=== PATIENT | female | born 1960 | race Caucasian/White ===

== ENCOUNTER 2017-07-30 18:26 | Inpatient (IN) | payer OTHER ==
[~2017-07-30] VITALS: Ht 175.2 cm; Wt 65.8 kg
--- NOTE | ~2017-07-30 | CON ---
[place], [place] REPORT OF CONSULTATION NAME: YOANA YBARRA UNIT #: [id number] ROOM: 312 DOCTOR: ANA CRISTINA NASH ED.D (EZE) BIRTHDATE: [birth year] DOS: 08/01/2017 HISTORY OF PRESENT ILLNESS: The patient is a 57-year-old female referred by Dr. Waters for competency evaluation. At the present time, she is on the [facility] Unit at [facility]. She states she is single, but has a boyfriend, but she has not seen him for quite some time. She does not have any children. She has no family intervention. According to the staff at [facility] in [place], [place], which is where she has been residing. She states she formerly worked and at one time was on social security. She does not know her family physician, but her medical history is pertinent for cirrhosis of the liver with ascites, Mack's esophagus and bipolar 1 disorder and delirium. MEDICATIONS: Include Invega Sustenna, omeprazole, Synthroid, albuterol, vitamin D, multivitamins, potassium chloride, folic acid and lactulose. She states she was formerly a heavy drinker. She does not smoke or use any other drugs. She was awake, alert and oriented to person, place, and approximate time. She states she has been residing in the halfway for about a year, although she has actually been there for closer to 3 years and states that she wants to go home and live alone in her house. Apparently, there is question if this house even exists, but she is clearly not capable of taking care of herself and in my opinion is not competent to make informed healthcare decisions. She should be returned to the halfway and then at that point in time, they can file for guardianship, but apparently there is some difficulty in [place], [place] with regard to guardianships. She apparently had an expert evaluation in 2016 at [facility], but that was never filed because there were no guardians to provide guardianship services. She is delirious at times because she her ammonia level will become elevated, although once she takes her lactulose, she does better, but she continues to have difficulty with her liver failure. DIAGNOSES: 1. Bipolar 1-mixed. 2. Delirium, not otherwise specified. RECOMMENDATIONS: In my opinion, this patient is not competent to make informed healthcare decisions. Thank you very much for this consult. [place], [place] REPORT OF CONSULTATION NAME: YOANA YBARRA UNIT #: [id number] ROOM: [facility] DOCTOR: ANA CRISTINA NASH ED.D (EZE) BIRTHDATE: [birth year] ANA CRISTINA NASH ED.D CM:CONSTR:REPORT OF CONSULTATION 1613 08/01/17 2201 interface
--- NOTE | ~2017-07-30 | WRIGHTHP ---
[place], [place] PATIENT HISTORY AND PHYSICAL EXAM [id number] UNIT #: [id number] ROOM: 312 DOCTOR: REBECCA HERNDON MD BIRTHDATE: [birth year] DOS: 07/31/2017 CHIEF COMPLAINT: "My only mistake was I came back, I wanted to leave that place." HISTORY OF PRESENT ILLNESS: This is a 57-year-old white female who was sent here to the [facility] Unit at [facility] on an involuntary basis from [facility], [place]. The patient was sent here involuntarily by the biomedical engineering technologist of the facility. The patient had become increasingly paranoid, psychotic and delusional over the last week or two. She believes she still has a home in [place] and attempted to elope the facility on multiple occasions, believing that she would walk home. The patient has also believe that she has a boyfriend and has been calling insurance companies and the police in order to find a way to get home and get to this boyfriend. The patient has been grossly psychotic, lacks insight and has extremely poor judgment. She has become increasingly disorganized there, not attending to her ADLs. She is admitted now to rule out any organic factors, to restabilize on medication, returning to the least restrictive environment when psychiatrically stable. PAST MEDICAL HISTORY: Remarkable for alcoholic cirrhosis with ascites, Mack's esophagus, COPD, GERD, hepatic failure, thrombocytopenia, vitamin B12 deficiency and a lengthy history of bipolar disorder. MENTAL STATUS: The patient is alert and oriented to person, place, and approximate to time. Mood does seem to be rather labile. She shifts from being pleasant and cooperative to being rather terse and angry. She is rather delusional and believes that she has a home and is planning to leave there. She is not redirectable in these thoughts whatsoever. She is cooperative in the sense that she is open to me changing her medications and is willing to allow me to taper and discontinue her Librium as well as switch her from Zoloft to Pristiq. DIAGNOSIS UPON ADMISSION: Bipolar type I, mixed. PLAN: I will go ahead and begin now on Librium taper, cutting her down to 5 mg twice daily. I have already discontinued the sertraline in lieu of Pristiq 50 mg at bedtime. Likewise, I have started her on Invega 6 mg at bedtime in order to break the psychosis. Her screening examination show her vitamin D level to be low at 17.5, so I will start her on vitamin D replacement 50,000 International Units weekly. Serum Ammonia level remains high at 54 despite receiving lactulose 80 grams 4 times a day. I will defer management of this high ammonia level to the hospitalist. Additionally, her TSH is elevated at 11.200. Again, I will defer management of her hypothyroidism to the hospitalist. We will engage her in individual and woodson milieu activity, returning to the least restrictive environment when psychiatrically stable. [place], [place] PATIENT HISTORY AND PHYSICAL EXAM NAME: YOANA YBARRA UNIT #: [id number] ROOM: 312 DOCTOR: REBECCA HERNDON MD BIRTHDATE: [birth year] REBECCA HERNDON MD CM:HISPHYS:PATIENT HISTORY AND PHYSICAL EXAMINATION 3 1015 REBECCA HERNDON MD 07/31/17 1013 interface
--- NOTE | ~2017-07-30 | PR ---
[place], [place] PROGRESS NOTE [id number] UNIT #: [id number] ROOM: 312 DOCTOR: TONYA BROWER MD BIRTHDATE: [birth year] DOS: 08/02/2017 SUBJECTIVE: The patient seen and spoke with the staff. Per staff, the patient is doing well. She took her medication and did not ask for any pain medication yesterday. The patient was pleasant and cooperative. She was in her room. She reports doing good. She said that she slept well and her mood is much better. She denied any thoughts of harming herself or anyone else. MENTAL STATUS EXAMINATION: The patient was pleasant, cooperative. Described her mood as "good." Affect, mood congruent. Thought process goal directed. No flight of ideas or loosening of association. She denied auditory or visual hallucination. No delusion or paranoia noted. She denied suicidal ideation, intent or plan. She also denied any homicidal ideation, intent or plan PLAN: 1. Continue current medication and care. 2. Continue redirection. 3. Supportive care. TONYA BROWER MD CM:PNTRANS [id number] TONYA BROWER MD 08/03/17 0010 interface
--- NOTE | ~2017-07-30 | PR ---
[place], [place] PROGRESS NOTE [id number] UNIT #: [id number] ROOM: 312 DOCTOR: REBECCA HERNDON MD BIRTHDATE: [birth year] DOS: 08/01/2017 CHIEF COMPLAINT: "I need something for this pain, I need to be transferred to a medical unit, I don't belong here." SUMMARY OF THE VISIT: The patient was interviewed as she was resting in bed. She offered a plethora of physical complaints, requesting pain meds and some intervention for her left shoulder and sternal pain. She demanded that she be transferred to a medical floor and when I redirected that none of her medical issues were severe enough to warrant being hospitalized, she was rather indignant and short and terse with me. I did discuss with her that these medical issues can still be addressed here, but that we also needed to address her psychiatric issues. She continues to be rather labile and rather flippant in her responses. She is tolerating the current medication regimen well. MENTAL STATUS: She is alert and oriented. Mood remains labile. Affect at times is inappropriate. She jumps from topic to topic, but is mainly somatically fixated. There are no overt auditory or visual hallucinations and I did not elicit any delusional symptoms; however, staff continues to report the same. Memory for the most part is intact. PLAN: I will discontinue her Librium at this point. If she requires any intervention, she does have Ativan available. Given the fact that she has tolerated the oral Invega well and has a tendency to be episodically noncompliant with her medicine, I will load her with Invega Sustenna 234 mg IM today. For her shoulder pain, I will offer her Zostrix high potency cream t.i.d. to the left shoulder. Any further treatment for this, I will defer to the hospitalist expertise. We will attempt to engage in individual and woodson milieu activity, returning to the least restrictive environment when psychiatrically stable. REBECCA HERNDON MD CM:PNTRANS [id number] REBECCA HERNDON MD 08/01/17902 interface
[2017-07-30] MEDS ORDERED: VENTOLIN 02.5 MG/3 M INH (18:39)
[2017-07-30] MEDS ORDERED: ATIVAN0.5 MG PO (18:40)
[2017-07-30] MEDS ORDERED: ZOLOFT100 MG PO (18:40)
[2017-07-30] MEDS ORDERED: LACTULOSE10 GM/151 PO (18:41)
[2017-07-30] MEDS ORDERED: MOBIC7.5 MG PO (18:42)
[2017-07-30] MEDS ORDERED: SYNTHROID25 MCG PO (18:42)
[2017-07-30] MEDS ORDERED: MULTIVITAMINS1 EAC5 PO (18:43)
[2017-07-30] MEDS ORDERED: NATURE'S BLEND F1 MG PO (18:44)
[2017-07-30] MEDS ORDERED: FERROUS SULFAT325 MG PO (18:45)
[2017-07-30] MEDS ORDERED: OXYCODONE HCL5 M1 PO (18:46)
[2017-07-30] MEDS ORDERED: CHLORDIAZEPOXID10 M2 PO (18:49)
[2017-07-30] MEDS ORDERED: POTASSIUM CHLO10 ME4 PO (18:51)
[2017-07-30] MEDS ORDERED: PROTONIX40 MG PO (18:51)
[2017-07-30] MEDS ORDERED: METOCLOPRAMIDE10 MG PO (18:53)
[2017-07-30] MEDS ORDERED: PROSOURCE PLUS887 ML PO ×2 (18:53→20:11)
[2017-07-30 19:10] VITALS: BP 107/67
[2017-07-30 21:30] VITALS: BP 107/67
[2017-07-31 06:20] LABS: BASO % 0.8 % (0.0-1.0); EOS # 0.1 10*3/uL (0.0-0.4); EOS % 4.6 % (1.0-4.0); HEMOGLOBIN 11.2 g/dl (12.0-16.0); LYMPH # 0.9 10*3/uL (1.3-4.4); LYMPH % 34.7 % (27.0-41.0); MEAN CELL VOLUME 94.7 fl (81.0-99.0); MEAN CORPUSCULAR HGB 31.2 pg (27.0-31.0); MEAN CORPUSCULAR HGB CONC 32.9 g/dl (33.0-37.0); MONO # 0.2 10*3/uL (0.1-1.0); NEUT # 1.4 10*3/uL (2.3-7.9); NEUT % 51.5 % (47.0-73.0); PLATELET COUNT AUTOMATED 57 10*3/uL (130-400); RED BLOOD COUNT 3.59 10*6/uL (4.10-5.10); RED CELL DISTRI WIDTH 14.3 % (0-14.5); WHITE BLOOD COUNT 2.6 10*3/uL (4.8-10.8)
[2017-07-31 06:51] LABS: ALBUMIN 2.8 gm/dl (3.1-4.5); ALKALINE PHOSPHATASE 99 U/L (45-117); BUN 14 mg/dl (7-24); CHLORIDE 111 mmol/L (98-107); CHOLESTEROL 123 mg/dL (<200); CREATININE 0.97 mg/dL (0.55-1.02); HDL CHOLESTEROL 35 mg/dl (40-60); LDL CHOLESTEROL 68 mg/dL (9-159); POTASSIUM 3.6 mmol/L (3.5-5.1); SGOT/AST 28 IU/L (3-35); SGPT/ALT 26 U/L (12-78); SODIUM 145 mmol/L (136-145); TRIGLYCERIDES 101 mg/dl (<150); VLDL CHOLESTEROL 20 mg/dL (6-40)
[2017-07-31 07:13] VITALS: BP 116/71
[2017-07-31 07:41] LABS: VITAMIN D, 25-HYDROXY 17.5 ng/mL (30-100)
[2017-07-31 19:58] VITALS: BP 110/62
[2017-08-01 08:12] VITALS: BP 120/80
[2017-08-01 20:00] VITALS: BP 136/72
[2017-08-02 09:30] VITALS: BP 105/56
[2017-08-02] MEDS ORDERED: PRISTIQ50 MG PO (13:36)
[2017-08-02] MEDS ORDERED: INVEGA6 MG PO (13:37)
== END 2017-08-02 15:49 | DRG 885 ==
LOC: 3N 18:26
PROVIDERS: Psychiatry & Neurology Psychiatry
DX: F23 Brief psychotic disorder (principal); D69.6 Thrombocytopenia, unspecified; K70.31 Alcoholic cirrhosis of liver with ascites; K72.10 Chronic hepatic failure without coma; F41.9 Anxiety disorder, unspecified; E53.8 Deficiency of other specified B group vitamins; K22.719 Barrett's esophagus with dysplasia, unspecified; J44.9 Chronic obstructive pulmonary disease, unspecified; K21.9 Gastro-esophageal reflux disease without esophagitis; R55 Syncope and collapse; F31.60 Bipolar disorder, current episode mixed, unspecified; Z90.49 Acquired absence of other specified parts of digestive tract; Z82.49 Family history of ischemic heart disease and other diseases of the circulatory system; Z80.9 Family history of malignant neoplasm, unspecified; Z88.7 Allergy status to serum and vaccine; Z79.899 Other long term (current) drug therapy